=== PATIENT | female | born 1970 | race Hispanic/Latino ===

== ENCOUNTER 2018-02-05 21:42 | Emergency (ER) | payer SELFPAY ==
--- NOTE | 2018-02-05 22:49 | CT ---
CT BRAIN WITHOUT CONTRAST: INDICATIONS: Head injury. Hit top of head on a rolling door at work. FINDINGS: No acute infarct, hemorrhage, or hydrocephalus is present. The septum pellucidum and third ventricle are midline. The skull and extracranial soft tissues are within normal limits. IMPRESSION: No acute intracranial abnormality. POS: [facility]
[2018-02-05] MEDS ORDERED: Metoclopramide HCl 10 MG TAB ONE (23:11)
[2018-02-05] MEDS ORDERED: diphenhydrAMINE 25 MG CAP ONE (23:11)
[2018-02-05] MEDS ORDERED: Amlodipine 5 MG TAB ONE (23:11)
[2018-02-05] MEDS ORDERED: Ibuprofen 800 MG TAB ONE (23:11)
== END 2018-02-05 23:35 | disposition home or self-care (01) ==
LOC: MADERS 21:42
DX: S00.93XA Contusion of unspecified part of head, initial encounter (principal); E11.9 Type 2 diabetes mellitus without complications; E78.5 Hyperlipidemia, unspecified; F32.9 Major depressive disorder, single episode, unspecified; I10 Essential (primary) hypertension; I25.10 Atherosclerotic heart disease of native coronary artery without angina pectoris; G43.909 Migraine, unspecified, not intractable, without status migrainosus; Z79.4 Long term (current) use of insulin; W22.8XXA Striking against or struck by other objects, initial encounter; Y92.69 Other specified industrial and construction area as the place of occurrence of the external cause; Y99.0 Civilian activity done for income or pay
CPT/HCPCS: 70450

== ENCOUNTER 2018-02-07 21:57 | Emergency (ER) | payer SELFPAY ==
[2018-02-07] MEDS ORDERED: Ondansetron ODT 4 MG TAB ONE (22:15)
[2018-02-07] MEDS ORDERED: cloNIDine 0.1 MG TAB ONE (22:19)
--- NOTE | 2018-02-07 22:55 | CT ---
CT OF THE BRAIN WITHOUT CONTRAST: 02/07/18 INDICATION: Hit on the head with a garage door on 02/05/18 with persistent headaches, nausea, vomiting. COMPARISON: Prior exam dated 02/05/18. FINDINGS: There is slightly more prominent cerebral atrophy for age than expected. The sulcation of the cerebra l hemispheres appears slightly more prominent than expected for age. The prominence of the subarachno id space overlying the cerebral convexity appears slightly increased for age. No definite subarachnoid hemorrhage is noted. Septum pellucidum and third ventricle are midline. There is subtle ribbon-like areas of increased density involving the anterior frontal cortex, left gr eater than right, that appears slightly more prominent than on the comparison examination. This can b e artifactual in nature; however, in light of the patient's history of head trauma, focal contusions cannot be entirely excluded. The mastoid air cells are clear. No displaced or depressed skull fracture is evident. The paranasal s inuses are clear. IMPRESSION: Ribbon-like areas of increased density involving the anterior cortex of the frontal lobes, left great er than right. This appears slightly more prominent than on the comparison examination. This may be a rtifactual in nature; however, given patient's history of trauma and persistent headache and nausea a nd vomiting, focal contusions of the frontal lobes cannot be entirely excluded. No subarachnoid hemor rhage or midline shift is evident. No hydrocephalus is noted. Findings were called to Dr. Minaya at 10:45 p.m. on 02/07/18. Followup MRI of the brain would be helpful for additional characterization. POS: [facility]
[2018-02-08 00:37] LABS: PTT 40.7 SEC (22.9-36.1); Prothrombin Time 13.2 SEC (12.0-14.7)
[2018-02-08 00:43] LABS: #Basophils 0.1 thou/uL (0.0-0.2); #Eosinphils 0.3 thou/uL (0.0-0.7); #Lymphocytes 2.6 thou/uL (1.20-3.40); #Monocytes 0.4 thou/uL (0.11-0.59); #Neutrophils 4.7 thou/uL (1.40-6.50); %Basophils 1.3 % (0.0-1.0); %Eosinophils 4.2 % (0.0-10.0); %Lymphocytes 31.9 % (21.0-51.0); %Monocytes 4.5 % (0.0-10.0); Hemoglobin 12.2 g/dL (12.0-16.0); Mean Corpuscular Hemoglobin 24.9 pg (27.0-31.0); Mean Corpuscular Volume 73.2 fl (81.0-99.0); Mean Platelet Volume 8.1 fL (7.4-10.4); Platelet Count 267 thou/uL (130-400); RBC Distribution Width 12.7 % (11.5-14.5); Red Blood Cell (RBC) Count 4.88 mill/uL (4.20-5.40); White Blood Cell (WBC) Count 8.1 thou/uL (4.8-10.8)
[2018-02-08 00:46] LABS: Anisocytosis MODERATE=16-30 cells (100X) (0-5/hpf); Microcytosis MODERATE=15-30 cells (100X) (0-5/hpf)
[2018-02-08 00:49] LABS: ALT (SGPT) 13 U/L (8-55); AST (SGOT) 12 U/L (5-34); Albumin 3.3 g/dL (3.5-5.0); Alkaline Phosphatase 77 U/L (40-150); Anion Gap 12 mmol/L (10-20); BUN (Urea Nitrogen) 13 mg/dL (7.0-18.7); Bilirubin, Total 0.3 mg/dL (0.2-1.2); CK (CPK) 38 U/L (29-168); Calc. Creatinine Clearance 0 mL/min (70-130); Calcium 8.9 mg/dL (7.8-10.44); Carbon Dioxide 25 mmol/L (22-29); Chloride 104 mmol/L (98-107); Estimated GFR-MDRD 83; Globulin 3.2 g/dL (2.4-3.5); Glucose 216 mg/dL (70-105); Protein, Total 6.5 g/dL (6.0-8.3); Sodium 137 mmol/L (136-145)
[2018-02-08 00:55] LABS: CKMB 0.7 ng/mL (0-6.6); Troponin I Less than 0.010 ng/mL (< 0.028)
== END 2018-02-08 01:46 | disposition short-term general hospital (02) ==
LOC: MADERS 21:57
DX: S09.90XA Unspecified injury of head, initial encounter (principal); I25.10 Atherosclerotic heart disease of native coronary artery without angina pectoris; I10 Essential (primary) hypertension; E11.9 Type 2 diabetes mellitus without complications; E78.5 Hyperlipidemia, unspecified; G43.909 Migraine, unspecified, not intractable, without status migrainosus; F32.9 Major depressive disorder, single episode, unspecified; Z79.4 Long term (current) use of insulin; Z79.899 Other long term (current) drug therapy; W22.8XXA Striking against or struck by other objects, initial encounter
CPT/HCPCS: 36415; 70450; 80053; 82550; 82553; 83880; 84484; 85025; 85610; 85730; 93005; 94760; Q0162

== ENCOUNTER → 2018-04-06 | Emergency (ER) | payer OTHER, SELFPAY ==
[~2018-04-06] MED LIST: Ketorolac Tromethamine 30 MG/ML VIAL ONE; Promethazine HCl 25 MG/ML VIAL ONE; Sodium Chloride 0.9% 1,000 ML BAG ONE; diphenhydrAMINE 50 MG/ML VIAL ONE
[2018-04-06 23:59] LABS: Anion Gap 14 mmol/L (10-20); BUN (Urea Nitrogen) 14 mg/dL (7.0-18.7); Calc. Creatinine Clearance 0 mL/min (70-130); Calcium 8.6 mg/dL (7.8-10.44); Carbon Dioxide 25 mmol/L (22-29); Chloride 103 mmol/L (98-107); Estimated GFR-MDRD 80; Glucose 355 mg/dL (70-105); Sodium 138 mmol/L (136-145)
== END ==
LOC: MADERS 20:51
DX: R51 Headache (principal); I10 Essential (primary) hypertension; E11.9 Type 2 diabetes mellitus without complications; E78.5 Hyperlipidemia, unspecified; F32.9 Major depressive disorder, single episode, unspecified; I25.10 Atherosclerotic heart disease of native coronary artery without angina pectoris; Z79.4 Long term (current) use of insulin; Z79.899 Other long term (current) drug therapy
CPT/HCPCS: 36416; 80048; 96361; 96374; 96375; 36415-59; J1200; J1885; J2550; J7050

== ENCOUNTER 2019-10-23 22:56 | Emergency (ER) | payer BC | END 2019-10-23 23:32 | disposition home or self-care (01) | LOC: MADERS 22:56 | DX: L01.00 Impetigo, unspecified (principal); I25.2 Old myocardial infarction; E11.9 Type 2 diabetes mellitus without complications; E78.5 Hyperlipidemia, unspecified; E78.00 Pure hypercholesterolemia, unspecified; I10 Essential (primary) hypertension; I25.10 Atherosclerotic heart disease of native coronary artery without angina pectoris; F32.9 Major depressive disorder, single episode, unspecified; F41.9 Anxiety disorder, unspecified; Z79.4 Long term (current) use of insulin; Z79.899 Other long term (current) drug therapy; Z79.82 Long term (current) use of aspirin | CPT/HCPCS: 99282 ==

== ENCOUNTER 2021-05-06 14:09 | Outpatient (CLI) | payer OTHER, MEDICAID | END 2021-05-06 14:10 | disposition home or self-care (01) | LOC: MADRAD 14:09 | PROVIDERS: ATTEND Family Medicine | DX: M54.5 Low back pain (principal); M47.816 Spondylosis without myelopathy or radiculopathy, lumbar region | CPT/HCPCS: 72100 ==

== ENCOUNTER 2021-06-01 22:14 | Emergency (ER) | payer MEDICAID ==
[2021-06-01] MEDS ORDERED: Cephalexin 500 MG CAP ONE (23:53)
[2021-06-01] MEDS ORDERED: Sulfameth/Trimethoprim DS 800-160mg TAB ONE (23:53)
== END 2021-06-01 23:57 | disposition home or self-care (01) ==
LOC: MADERS 22:14
DX: L03.311 Cellulitis of abdominal wall (principal); E11.9 Type 2 diabetes mellitus without complications; I25.10 Atherosclerotic heart disease of native coronary artery without angina pectoris; I11.0 Hypertensive heart disease with heart failure; I50.9 Heart failure, unspecified; I25.2 Old myocardial infarction; G43.909 Migraine, unspecified, not intractable, without status migrainosus; E78.5 Hyperlipidemia, unspecified; E78.00 Pure hypercholesterolemia, unspecified; Z79.4 Long term (current) use of insulin
CPT/HCPCS: 99283

== ENCOUNTER 2021-06-08 10:31 | Emergency (ER) | payer MEDICAID ==
[2021-06-08 11:16] LABS: #Basophils 0.1 thou/uL (0.0-0.2); #Eosinphils 0.7 thou/uL (0.0-0.7); #Monocytes 0.3 thou/uL (0.11-0.59); #Neutrophils 5.1 thou/uL (1.40-6.50); %Basophils 1.1 % (0.0-1.0); %Eosinophils 8.7 % (0.0-10.0); %Lymphocytes 24.1 % (21.0-51.0); %Monocytes 3.8 % (0.0-10.0); %Neutrophils 62.3 % (42.0-75.0); Hemoglobin 13.7 g/dL (12.0-16.0); Mean Corpuscular HGB CONC 31.4 g/dL (32.0-36.0); Mean Corpuscular Hemoglobin 25.1 pg (27.0-31.0); Mean Platelet Volume 9.8 fL (7.4-10.4); Platelet Count 151 thou/uL (130-400); RBC Distribution Width 12.6 % (11.5-14.5); Red Blood Cell (RBC) Count 5.47 mill/uL (4.20-5.40); White Blood Cell (WBC) Count 8.3 thou/uL (4.8-10.8)
[2021-06-08] MEDS ORDERED: Aspirin Chewable 81 MG TAB ONE (11:19)
[2021-06-08] MEDS ORDERED: hydrALAZINE 10 MG TAB ONE ×2 (11:19→11:20)
[2021-06-08] MEDS ORDERED: Nitroglycerin 2% Ointment 1 INCH/1 GM Packet ONE (11:19)
[2021-06-08 11:29] LABS: ALT (SGPT) 19 U/L (8-55); AST (SGOT) 16 U/L (5-34); Albumin 3.3 g/dL (3.5-5.0); Alkaline Phosphatase 94 U/L (40-110); Anion Gap 14 mmol/L (10-20); BUN (Urea Nitrogen) 20 mg/dL (9.8-20.1); Bilirubin, Total 0.3 mg/dL (0.2-1.2); CK (CPK) 44 U/L (29-168); Calc. Creatinine Clearance 0 mL/min (70-130); Calcium 9.7 mg/dL (7.8-10.44); Carbon Dioxide 23 mmol/L (22-29); Chloride 106 mmol/L (98-107); Globulin 3.5 g/dL (2.4-3.5); Glucose 253 mg/dL (70-105); Potassium 4.2 mmol/L (3.5-5.1); Protein, Total 6.8 g/dL (6.0-8.3); Sodium 139 mmol/L (136-145)
[2021-06-08 11:31] LABS: CKMB 0.9 ng/mL (0-6.6)
== END 2021-06-08 14:45 | disposition home or self-care (01) ==
LOC: MADERS 10:31
DX: I16.0 Hypertensive urgency (principal); R07.9 Chest pain, unspecified; K21.9 Gastro-esophageal reflux disease without esophagitis; I13.0 Hypertensive heart and chronic kidney disease with heart failure and stage 1 through stage 4 chronic kidney disease, or unspecified chronic kidney disease; I50.9 Heart failure, unspecified; N18.30 Chronic kidney disease, stage 3 unspecified; E11.22 Type 2 diabetes mellitus with diabetic chronic kidney disease; G43.909 Migraine, unspecified, not intractable, without status migrainosus; I25.10 Atherosclerotic heart disease of native coronary artery without angina pectoris; I25.2 Old myocardial infarction; Z79.4 Long term (current) use of insulin; Z79.82 Long term (current) use of aspirin; Z79.899 Other long term (current) drug therapy; Z79.01 Long term (current) use of anticoagulants
CPT/HCPCS: 36415; 71045; 80053; 82550; 82553; 83880; 84484; 85025; 93005; 94760

== ENCOUNTER 2021-07-20 16:53 | Outpatient (CLI) | payer OTHER | END 2021-07-20 16:54 | disposition home or self-care (01) | LOC: MADLAB 16:53 | PROVIDERS: ATTEND Family Medicine | DX: J45.909 Unspecified asthma, uncomplicated (principal); R91.8 Other nonspecific abnormal finding of lung field | CPT/HCPCS: 71046 ==

== ENCOUNTER 2021-10-13 18:52 | Emergency (ER) | payer MEDICAID ==
[2021-10-13] MEDS ORDERED: HYDROcodone/Acetaminophen 5/325 mg Tablet ONE (20:35)
[2021-10-13] MEDS ORDERED: Cyclobenzaprine 10 MG TAB ONE (20:36)
== END 2021-10-13 20:45 | disposition short-term general hospital (02) ==
LOC: MADERS 18:52
DX: M79.605 Pain in left leg (principal); M79.89 Other specified soft tissue disorders; I13.0 Hypertensive heart and chronic kidney disease with heart failure and stage 1 through stage 4 chronic kidney disease, or unspecified chronic kidney disease; I50.9 Heart failure, unspecified; N18.30 Chronic kidney disease, stage 3 unspecified; K21.9 Gastro-esophageal reflux disease without esophagitis; I25.2 Old myocardial infarction; E11.22 Type 2 diabetes mellitus with diabetic chronic kidney disease; G43.909 Migraine, unspecified, not intractable, without status migrainosus; I25.10 Atherosclerotic heart disease of native coronary artery without angina pectoris; E78.5 Hyperlipidemia, unspecified; E78.00 Pure hypercholesterolemia, unspecified; Z97.4 Presence of external hearing-aid; Z79.01 Long term (current) use of anticoagulants; Z79.899 Other long term (current) drug therapy
CPT/HCPCS: 99284

== ENCOUNTER 2022-03-09 19:13 | Emergency (ER) | payer OTHER, MEDICAID ==
[2022-03-09 20:55] LABS: BHCG - Serum Negative (NEGATIVE); Pregs Control Background? CLEAR/WHITE (CLR/WHITE); Pregs Control Bar Appear? YES (CONTROL BAR)
[2022-03-09 21:00] LABS: #Basophils 0.1 thou/uL (0.0-0.2); #Eosinphils 0.6 thou/uL (0.0-0.7); #Lymphocytes 2.2 thou/uL (1.20-3.40); #Monocytes 0.4 thou/uL (0.11-0.59); #Neutrophils 6.8 thou/uL (1.40-6.50); %Basophils 1.3 % (0.0-1.0); %Eosinophils 6.4 % (0.0-10.0); %Lymphocytes 21.3 % (21.0-51.0); Hemoglobin 12.5 g/dL (12.0-16.0); MDiff Complete? YES; Mean Corpuscular HGB CONC 32.2 g/dL (32.0-36.0); Mean Corpuscular Hemoglobin 23.4 pg (27.0-31.0); Mean Corpuscular Volume 72.5 fL (78.0-98.0); Microcytosis SLIGHT = 6-15 cells (100X) (0-5/hpf); Platelet Count 160 thou/uL (130-400); RBC Distribution Width 16.7 % (11.5-14.5); Red Blood Cell (RBC) Count 5.35 mill/uL (4.20-5.40); White Blood Cell (WBC) Count 10.1 thou/uL (4.8-10.8)
[2022-03-09] MEDS ORDERED: Sodium Chloride 0.9% 500 ML ONE (21:03)
[2022-03-09 21:05] LABS: ALT (SGPT) 11 U/L (8-55); AST (SGOT) 18 U/L (5-34); Albumin 3.1 g/dL (3.5-5.0); Alkaline Phosphatase 81 U/L (40-110); Anion Gap 18 mmol/L (10-20); BUN (Urea Nitrogen) 46 mg/dL (9.8-20.1); Bilirubin, Total 0.3 mg/dL (0.2-1.2); Calc. Creatinine Clearance 0 mL/min (70-130); Carbon Dioxide 22 mmol/L (22-29); Chloride 106 mmol/L (98-107); Globulin 3.9 g/dL (2.4-3.5); Glucose 92 mg/dL (70-105); Lipase 56 U/L (8-78); Potassium 3.7 mmol/L (3.5-5.1); Sodium 142 mmol/L (136-145)
[2022-03-09 22:58] LABS: Bilirubin Negative (Negative); Blood, Urine Small (Negative); Glucose, Urine (Dipstick) 500 mg/dL (Negative); Ketone, Urine Negative (Negative); Leukocyte Negative (Negative); Nitrite Negative (Negative); Protein, Urine (Dipstick) > or equal to 300 mg/dL (Neg-Trace); Specific Gravity, Urine 1.025 (1.005-1.030); Urobilinogen 0.2 mg/dL (Less than 2)
[2022-03-09 22:59] LABS: Clarity Hazy (Clear)
[2022-03-09 23:08] LABS: RBC/HPF 0-3 HPF (0-3); WBC/HPF 21-50 HPF (0-3)
[2022-03-09 23:09] LABS: Bacteria/HPF 1+ HPF (None Seen); Transitional Epithelial 0-3 HPF (None Seen)
[2022-03-09] MEDS ORDERED: Cephalexin 500 MG CAP ONE (23:29)
[2022-03-09] MEDS ORDERED: Acetaminophen 325 MG TAB ONE (23:31)
== END 2022-03-09 23:38 | disposition home or self-care (01) ==
LOC: MADERS 19:13
DX: S16.1XXA Strain of muscle, fascia and tendon at neck level, initial encounter (principal); S39.012A Strain of muscle, fascia and tendon of lower back, initial encounter; S30.1XXA Contusion of abdominal wall, initial encounter; S20.212A Contusion of left front wall of thorax, initial encounter; S40.022A Contusion of left upper arm, initial encounter; N30.00 Acute cystitis without hematuria; J32.0 Chronic maxillary sinusitis; E04.1 Nontoxic single thyroid nodule; N28.9 Disorder of kidney and ureter, unspecified; K21.9 Gastro-esophageal reflux disease without esophagitis; N18.30 Chronic kidney disease, stage 3 unspecified; I25.2 Old myocardial infarction; I50.9 Heart failure, unspecified; I13.0 Hypertensive heart and chronic kidney disease with heart failure and stage 1 through stage 4 chronic kidney disease, or unspecified chronic kidney disease; E11.9 Type 2 diabetes mellitus without complications; E78.5 Hyperlipidemia, unspecified; V89.2XXA Person injured in unspecified motor-vehicle accident, traffic, initial encounter
CPT/HCPCS: 70450; 71260; 72125; 74177; 80053; 81003; 81015; 83690; 84703; 85025; 87086; G0390; J7030

== ENCOUNTER 2022-07-05 16:37 | Emergency (ER) | payer OTHER ==
[2022-07-05 17:26] LABS: #Basophils 0.1 thou/uL (0.0-0.2); #Eosinphils 0.8 thou/uL (0.0-0.7); #Lymphocytes 1.7 thou/uL (1.20-3.40); #Monocytes 0.3 thou/uL (0.11-0.59); #Neutrophils 6.3 thou/uL (1.40-6.50); %Basophils 0.9 % (0.0-1.0); %Lymphocytes 18.7 % (21.0-51.0); %Monocytes 3.1 % (0.0-10.0); %Neutrophils 68.3 % (42.0-75.0); Hemoglobin 10.1 g/dL (12.0-16.0); Mean Corpuscular HGB CONC 29.3 g/dL (32.0-36.0); Mean Corpuscular Volume 71.5 fL (78.0-98.0); Mean Platelet Volume 9.3 fL (7.4-10.4); Platelet Count 139 thou/uL (130-400); RBC Distribution Width 15.1 % (11.5-14.5); Red Blood Cell (RBC) Count 4.82 mill/uL (4.20-5.40); White Blood Cell (WBC) Count 9.2 thou/uL (4.8-10.8)
[2022-07-05 17:33] LABS: ALT (SGPT) 9 U/L (8-55); AST (SGOT) 11 U/L (5-34); Alkaline Phosphatase 103 U/L (40-110); Anion Gap 16 mmol/L (10-20); BUN (Urea Nitrogen) 35 mg/dL (9.8-20.1); Bilirubin, Total 0.4 mg/dL (0.2-1.2); Calc. Creatinine Clearance 0 mL/min (70-130); Calcium 8.4 mg/dL (7.8-10.44); Carbon Dioxide 24 mmol/L (22-29); Chloride 101 mmol/L (98-107); Estimated GFR 25; Globulin 3.3 g/dL (2.4-3.5); Glucose 276 mg/dL (70-105); Protein, Total 6.3 g/dL (6.0-8.3); Sodium 137 mmol/L (136-145)
[2022-07-05 17:36] LABS: Microcytosis SLIGHT = 6-15 cells (100X) (0-5/hpf); Polychromasia SLIGHT = 2-3 cells (100X) (0-2/hpf)
[2022-07-05 17:53] LABS: CKMB 0.7 ng/mL (0-6.6)
[2022-07-05] MEDS ORDERED: Aspirin Chewable 81 MG TAB ONE (18:24)
[2022-07-05] MEDS ORDERED: Furosemide 20 MG/2 ML VIAL ONE (20:17)
[2022-07-05] MEDS ORDERED: Sodium Chloride 0.9% 100 ML ONE (20:53)
[2022-07-05] MEDS ORDERED: cefTRIAXone\\ROCEPHIN 1 GM VIAL ONE (20:54)
[2022-07-06] MEDS ORDERED: Morphine 4 MG/ML VIAL ONE (00:18)
[2022-07-06 00:58] LABS: Troponin I 0.042 ng/mL (< 0.028)
[2022-07-06 07:08] LABS: #Basophils 0.1 thou/uL (0.0-0.2); #Eosinphils 0.8 thou/uL (0.0-0.7); #Lymphocytes 1.4 thou/uL (1.20-3.40); #Monocytes 0.5 thou/uL (0.11-0.59); %Basophils 0.9 % (0.0-1.0); %Eosinophils 8.4 % (0.0-10.0); %Monocytes 4.7 % (0.0-10.0); %Neutrophils 71.9 % (42.0-75.0); Hemoglobin 10.7 g/dL (12.0-16.0); Mean Corpuscular HGB CONC 29.3 g/dL (32.0-36.0); Mean Corpuscular Hemoglobin 20.9 pg (27.0-31.0); Mean Corpuscular Volume 71.4 fL (78.0-98.0); Mean Platelet Volume 9.4 fL (7.4-10.4); Platelet Count 132 thou/uL (130-400); Red Blood Cell (RBC) Count 5.12 mill/uL (4.20-5.40); White Blood Cell (WBC) Count 9.7 thou/uL (4.8-10.8)
[2022-07-06 07:09] LABS: Anisocytosis SLIGHT = 6-15 cells (100X) (0-5/hpf); Platelet Morphology Comment Appears Adequate
[2022-07-06 07:15] LABS: ALT (SGPT) 9 U/L (8-55); AST (SGOT) 15 U/L (5-34); Albumin 2.8 g/dL (3.5-5.0); Alkaline Phosphatase 80 U/L (40-110); Anion Gap 14 mmol/L (10-20); BUN (Urea Nitrogen) 34 mg/dL (9.8-20.1); Bilirubin, Total 0.4 mg/dL (0.2-1.2); Calc. Creatinine Clearance 0 mL/min (70-130); Carbon Dioxide 28 mmol/L (22-29); Chloride 102 mmol/L (98-107); Estimated GFR 28; Glucose 71 mg/dL (70-105); Potassium 3.7 mmol/L (3.5-5.1); Protein, Total 6.8 g/dL (6.0-8.3); Sodium 140 mmol/L (136-145)
[2022-07-06] MEDS ORDERED: Furosemide 20 MG/2 ML VIAL ONE (08:06)
== END 2022-07-06 08:51 | disposition home or self-care (01) ==
LOC: MADERS 16:37
DX: J18.9 Pneumonia, unspecified organism (principal); I13.0 Hypertensive heart and chronic kidney disease with heart failure and stage 1 through stage 4 chronic kidney disease, or unspecified chronic kidney disease; E11.22 Type 2 diabetes mellitus with diabetic chronic kidney disease; N18.30 Chronic kidney disease, stage 3 unspecified; I50.9 Heart failure, unspecified; I44.4 Left anterior fascicular block; I25.2 Old myocardial infarction; D64.9 Anemia, unspecified; I25.10 Atherosclerotic heart disease of native coronary artery without angina pectoris; K21.9 Gastro-esophageal reflux disease without esophagitis; E78.00 Pure hypercholesterolemia, unspecified; Z79.4 Long term (current) use of insulin; Z95.5 Presence of coronary angioplasty implant and graft; Z79.82 Long term (current) use of aspirin; Z79.01 Long term (current) use of anticoagulants; Z79.899 Other long term (current) drug therapy
CPT/HCPCS: 36416; 71045; 71250; 80053; 82553; 83880; 84484; 85025; 87040; 93005; 96365; 96375; 96376; J0696; J1940; J2270; J3490; J7620

== ENCOUNTER 2022-11-23 01:26 | Emergency (ER) | payer OTHER ==
[2022-11-23] MEDS ORDERED: Lactated Ringer's 1,000 ML ONE (01:53)
[2022-11-23] MEDS ORDERED: Ondansetron PF 4 MG/2 ML Vial ONE (01:53)
[2022-11-23] MEDS ORDERED: Ipratropium/Albuterol 3 ML NEB ONE (01:53)
[2022-11-23] MEDS ORDERED: Acetaminophen 500 MG TAB ONE (01:53)
[2022-11-23 02:08] LABS: #Basophils 0.1 thou/uL (0.0-0.2); #Eosinphils 0.1 thou/uL (0.0-0.7); #Lymphocytes 0.9 thou/uL (1.20-3.40); #Monocytes 0.5 thou/uL (0.11-0.59); #Neutrophils 7.3 thou/uL (1.40-6.50); %Basophils 1.3 % (0.0-1.0); %Eosinophils 1.5 % (0.0-10.0); %Lymphocytes 10.3 % (21.0-51.0); %Monocytes 5.5 % (0.0-10.0); %Neutrophils 81.4 % (42.0-75.0); Anisocytosis SLIGHT = 6-15 cells (100X) (0-5/hpf); Hemoglobin 11.9 g/dL (12.0-16.0); MDiff Complete? YES; Mean Corpuscular HGB CONC 31.8 g/dL (32.0-36.0); Mean Corpuscular Hemoglobin 23.1 pg (27.0-31.0); Mean Corpuscular Volume 72.8 fl (78.0-98.0); Mean Platelet Volume 9.4 fL (7.4-10.4); Ovalocytes SLIGHT = 2-5 cells (100X) (0-1/hpf); Platelet Count 115 10x3/uL (130-400); Platelet Morphology Comment Appears Decreased; Red Blood Cell (RBC) Count 5.15 mill/uL (4.20-5.40); Stomatocytes SLIGHT = 2-5 cells (100X) (0-1/hpf); White Blood Cell (WBC) Count 8.9 10x3/uL (4.8-10.8)
[2022-11-23] MEDS ORDERED: Meclizine HCl 25 MG TAB ONE (02:14)
[2022-11-23 02:21] LABS: ALT (SGPT) 11 U/L (8-55); AST (SGOT) 18 U/L (5-34); Albumin 2.9 g/dL (3.5-5.0); Alkaline Phosphatase 74 U/L (40-110); Anion Gap 14 mmol/L (10-20); BUN (Urea Nitrogen) 40 mg/dL (9.8-20.1); Bilirubin, Total 0.5 mg/dL (0.2-1.2); CK (CPK) 184 U/L (29-168); Calc. Creatinine Clearance 0 mL/min (70-130); Calcium 8.8 mg/dL (7.8-10.44); Carbon Dioxide 29 mmol/L (22-29); Chloride 91 mmol/L (98-107); Estimated GFR 21; Glucose 219 mg/dL (70-105); Lipase 41 U/L (8-78); Potassium 3.1 mmol/L (3.5-5.1); Protein, Total 6.9 g/dL (6.0-8.3); Sodium 131 mmol/L (136-145)
[2022-11-23] MEDS ORDERED: Potassium Chloride 20 MEQ TAB ONE (02:56)
[2022-11-23 03:39] LABS: CKMB 1.6 ng/mL (0-6.6)
[2022-11-23 03:54] LABS: SARS-CoV-2 NAA Rapid Test Not Detected (NotDetected)
== END 2022-11-23 03:21 | disposition short-term general hospital (02) ==
LOC: MADERS 01:26
DX: E11.22 Type 2 diabetes mellitus with diabetic chronic kidney disease (principal); I13.0 Hypertensive heart and chronic kidney disease with heart failure and stage 1 through stage 4 chronic kidney disease, or unspecified chronic kidney disease; N18.30 Chronic kidney disease, stage 3 unspecified; J20.9 Acute bronchitis, unspecified; E86.0 Dehydration; E87.6 Hypokalemia; E11.65 Type 2 diabetes mellitus with hyperglycemia; I25.10 Atherosclerotic heart disease of native coronary artery without angina pectoris; K21.9 Gastro-esophageal reflux disease without esophagitis; E78.00 Pure hypercholesterolemia, unspecified; Z96.41 Presence of insulin pump (external) (internal); Z79.01 Long term (current) use of anticoagulants; Z79.82 Long term (current) use of aspirin; Z79.899 Other long term (current) drug therapy; Z79.84 Long term (current) use of oral hypoglycemic drugs; R77.8 Other specified abnormalities of plasma proteins; Z20.822 Contact with and (suspected) exposure to COVID-19
CPT/HCPCS: 71045; 80053; 82550; 82553; 83605; 83690; 83735; 83880; 84484; 85025; 85379; 87040; 87077; 87149; 93005; 94760; 96374; J2405; J7120; J7620; U0002

== ENCOUNTER 2023-06-01 18:05 | Emergency (ER) | payer OTHER ==
[2023-06-01] MEDS ORDERED: Lidocaine 1% w/Epinephrine 1:100K 20 ML VIAL ONE (18:44)
== END 2023-06-01 21:14 | disposition home or self-care (01) ==
LOC: MADERS 18:05
DX: T82.838A Hemorrhage due to vascular prosthetic devices, implants and grafts, initial encounter (principal); I13.0 Hypertensive heart and chronic kidney disease with heart failure and stage 1 through stage 4 chronic kidney disease, or unspecified chronic kidney disease; E11.22 Type 2 diabetes mellitus with diabetic chronic kidney disease; N18.30 Chronic kidney disease, stage 3 unspecified; I50.9 Heart failure, unspecified; D64.9 Anemia, unspecified; I25.2 Old myocardial infarction; E78.00 Pure hypercholesterolemia, unspecified; G47.30 Sleep apnea, unspecified; Z79.4 Long term (current) use of insulin; Z95.5 Presence of coronary angioplasty implant and graft; Z95.810 Presence of automatic (implantable) cardiac defibrillator; Z79.899 Other long term (current) drug therapy
CPT/HCPCS: 12001; 71046